=== PATIENT | male | born 1955 | race African-American/Black ===

== ENCOUNTER 2021-03-30 23:49 | Emergency (ER) | payer BC, MEDICAID ==
[~2021-03-30] VITALS: Ht 175.3 cm; Wt 73.0 kg
[~2021-03-30 23:49] MED LIST: METHADONE; TRAM50TA
[2021-03-31] MEDS ORDERED: MORPHINE SULFATE 4 MG/ML CPJ (NOT FOR IM USE) IV STA (03:20)
[2021-03-31] MEDS ORDERED: ONDANSETRON HCL 4MG/2ML INJ IV STA (03:20)
[2021-03-31] MEDS ORDERED: SODIUM CHLORIDE 0.9% 1,000 ML IV ONE (03:30)
[2021-03-31 03:48] LABS: BASOPHILS % 1.2 % (0.0-2.0); EOSINOPHILS % 4.3 % (0.0-5.0); HEMATOCRIT. 34.6 % (42.0-52.0); HEMOGLOBIN. 10.9 g/dL (14.0-18.0); LYMPHOCYTES % 35.8 % (20.0-50.0); MEAN CORPUSCULAR HEMOGLOBIN 24.3 pg (28.0-32.0); MEAN PLATELET VOLUME 7.5 fl (7.4-10.4); MONOCYTES % 8.8 % (2.0-8.0); NEUTROPHILS % 49.9 % (40.0-76.0); PLATELET 326 x1000/uL (130-400); RED BLOOD CELL COUNT 4.49 mill/uL (4.7-6.1); RED CELL DISTRIBUTION WIDTH 15.8 % (11.6-14.6)
[2021-03-31 04:04] LABS: CHLORIDE 105 mEq/L (98-107)
[2021-03-31] MEDS ORDERED: IBUP-2029 MT (04:47)
[2021-03-31] MEDS ORDERED: FAMO40TA70 MT (04:47)
[2021-03-31 06:03] VITALS: BP 127/84
== END 2021-03-31 06:04 | disposition home or self-care (01) ==
LOC: ER 23:49
DX: R10.33 Periumbilical pain (principal); R11.2 Nausea with vomiting, unspecified; Z98.890 Other specified postprocedural states; Z79.899 Other long term (current) drug therapy
CPT/HCPCS: 36415; 74176; 80053; 83605; 83690; 85025; 96361; 96374; 96375; 99284; J2270; J2405; J7030; Z7610

== ENCOUNTER 2022-07-19 01:26 | Emergency (ER) | payer OTHER, MEDICAID ==
[~2022-07-19] VITALS: Ht 175.3 cm; Wt 75.0 kg
[~2022-07-19 01:26] MED LIST changes: +FAMO40TA70 MT; +IBUP-2029 MT
[2022-07-19 01:33] VITALS: BP 149/84
== END 2022-07-19 09:19 | disposition left against medical advice (07) ==
LOC: ER 01:26
DX: Z53.21 Procedure and treatment not carried out due to patient leaving prior to being seen by health care provider (principal); R07.9 Chest pain, unspecified
CPT/HCPCS: 93005